=== PATIENT | female | born 1970 | race Caucasian/White ===

== ENCOUNTER 2017-12-21 08:56 | Emergency (ER) | payer BC ==
[2017-12-21 09:00] VITALS: BMI 26.0
[2017-12-21 09:03] VITALS: RESP 16; O2SAT 100
--- NOTE | 2017-12-21 10:28 | C.PDOC ---
History Of Present Illness 47 y/o female presents to ED sent by surgeon Dr. Gore for scheduled OR and further evaluation of urinary obstruction. Patient states she does not wish to be admitted. Patient admits to abdomen discomfort and Wyman causing discomfort denies nausea, vomiting, diarrhea, vaginal bleeding, vaginal discharge or any other complaints at this time. Time Seen by Provider: 12/21/17 09:05 Chief Complaint (Nursing): Female Genitourinary History Per: Patient History/Exam Limitations: no limitations Onset/Duration Of Symptoms: Days Current Symptoms Are (Timing): Still Present Past Medical History Reviewed: Historical Data, Nursing Documentation, Vital Signs Vital Signs: Last Vital Signs Temp 98.3 F 12/21/17 09:00 Pulse 83 12/21/17 09:00 Resp 16 12/21/17 09:00 BP 144/91 H 12/21/17 09:00 Pulse Ox 100 12/21/17 12:58 - Medical History PMH: Cardia Arrhythmia (PVC'S PER PATIENT), Migraine Surgical History: No Surg Hx Family History: States: No Known Family Hx - Social History Hx Alcohol Use: No Hx Substance Use: No - Immunization History Hx Tetanus Toxoid Vaccination: No Hx Influenza Vaccination: No Hx Pneumococcal Vaccination: No Review Of Systems Except As Marked, All Systems Reviewed And Found Negative. Gastrointestinal: Positive for: Abdominal Pain Physical Exam - Physical Exam Appears: Non-toxic, No Acute Distress Skin: Warm, Dry, No Rash Head: Atraumatic, Normacephalic Eye(s): bilateral: Normal Inspection Oral Mucosa: Moist Neck: Normal ROM, Supple Cardiovascular: Rhythm Regular Respiratory: Normal Breath Sounds, No Rales, No Rhonchi, No Wheezing Gastrointestinal/Abdominal: Soft, No Tenderness, No Guarding, No Rebound, Other (Wyman catheter in place) Back: No CVA Tenderness, No Vertebral Tenderness Neurological/Psych: Oriented x3, Normal Speech, Normal Cognition ED Course And Treatment - Laboratory Results Result Diagrams: 12/21/17 12:16 12/21/17 12:16 O2 Sat by Pulse Oximetry: 100 (RA) Pulse Ox Interpretation: Normal Medical Decision Making Medical Decision Making: Assessment: urinary obstruction Progress: Dr. Gore saw pt at ED, blood work was done and Wyman was changed Patient discharged with urinary retention and Fibroid with f.u to Dr. Gore Disposition Discussed With : Jodie Gore Doctor Will See Patient In The: ED Counseled Patient/Family Regarding: Studies Performed, Diagnosis, Need For Followup - Disposition Disposition: HOME/ ROUTINE Disposition Time: 12:56 Condition: STABLE Additional Instructions: follow up with Dr. Gore in 2 days call to make an appointment return to ER if symptoms worsens or progress Instructions: Uterine Fibroids, Urinary Retention (DC) Forms: [facility] (Welsh), General Discharge Instructions - Clinical Impression Clinical Impression: Fibroid uterus, Urinary retention - Scribe Statement The provider has reviewed the documentation as recorded by the Ismaibrai Alberto All medical record entries made by the Isamibrai were at my direction and personally dictated by me. I have reviewed the chart and agree that the record accurately reflects my personal performance of the history, physical exam, medical decision making, and the department course for this patient. I have also personally directed, reviewed, and agree with the discharge instructions and disposition.
--- NOTE | 2017-12-21 12:12 | MRI ---
PROCEDURE: MRI pelvis HISTORY: abd. pain COMPARISON: Not available TECHNIQUE: Multiplanar, multi sequence imaging of the pelvis was performed without intravenous gadolinium administration. FINDINGS: The uterus is grossly enlarged due to the presence of numerous fibroids of varying size. The largest fibroid measures approximately 5.5 x 6.7 x 7.3 cm. The endometrium is distorted and effaced by these numerous fibroids. The overall size of the uterus is approximately 8.8 x 10.3 x 12.8 cm. The endometrium is grossly normal in width. There is no endometrial fluid. The cervix is unremarkable in appearance. The vagina is grossly normal in appearance. Both ovaries are identified and are unremarkable with several small follicles. There is no pelvic lymphadenopathy. The urinary bladder is decompressed around a Wyman catheter balloon. There is marked atrophy of the right psoas muscle. There is marked atrophy of the left rectus abdominus muscle. The significance of this is uncertain. Several sacral Tarlov cysts are identified. This is an incidental finding. This results in some remodeling of the posterior aspect of the S2 vertebral body. The marrow signal of the visualized osseous structures is within normal limits. IMPRESSION: Enlarged multi fibroid uterus. Wyman catheter within a decompressed urinary bladder. No adnexal masses. Incidentally noted sacral Tarlov cysts. Incidental discovery of a trophic left rectus abdominus muscle and right psoas muscle.
[2017-12-21 12:21] LABS: BASO % 0.4 % (0.0-2.0); EOS # 0.2 K/uL (0.0-0.7); EOS % 2.9 % (0.0-4.0); HEMOGLOBIN 8.1 g/dL (11.0-16.0); LYMPH # 1.3 K/uL (1.0-4.3); LYMPH % 23.4 % (20.0-40.0); MEAN CELL VOLUME 65.2 fL (81.0-99.0); MEAN CORPUSCULAR HEMOGLOBIN 19.8 pg (27.0-31.0); MEAN CORPUSCULAR HGB CONC 30.3 g/dL (33.0-37.0); MEAN PLATELET VOLUME 7.3 fL (7.2-11.7); MONO # 0.3 K/uL (0.0-0.8); MONO % 4.7 % (0.0-10.0); NEUT % 68.6 % (50.0-75.0); RBC 4.1 Mil/uL (3.80-5.20); RED CELL DISTRIBUTION WIDTH 18.5 % (11.5-14.5); WHITE BLOOD COUNT 5.8 K/uL (4.8-10.8)
[2017-12-21 12:33] LABS: ALB/GLOB RATIO 1.3 (1.0-2.1); ALBUMIN 4.2 g/dL (3.5-5.0); ALT/SGPT 20 U/L (9-52); AST/SGOT 19 U/L (14-36); BLOOD UREA NITROGEN 5 mg/dL (7-17); CALCIUM 8.6 mg/dl (8.6-10.4); GFR AFRICAN-AMERICAN > 60; GFR NON-AFRICAN AMERICAN > 60
[2017-12-21 12:37] LABS: PROTHROMBIN TIME 11.4 SECONDS (9.7-12.2)
[2017-12-21 13:07] VITALS: BP 138/80; PULSE 80; TEMP 98.4
--- NOTE | 2017-12-21 15:15 | C.PDOC ---
History Of Present Illness pt presented to the ER with bladder and pelvic pain and innability ot urinate. Pt was diagnosed with massive fibroid uterus, associated urinary retention and worsening pain. Time Seen by Provider: 12/21/17 09:05 Chief Complaint (Nursing): Female Genitourinary History Per: Patient History/Exam Limitations: no limitations Onset/Duration Of Symptoms: Days Current Symptoms Are (Timing): Worse Severity: Severe Pain Scale Rating Of: 7 Quality Of Discomfort: Pressure, "Pain" Associated Symptoms: Urinary Symptoms Alleviating Factors: None Recent travel outside of the [place]: No Additional History Per: Patient Abnormal Vaginal Bleeding: Yes : 0 Para: 0 Miscarriage: 0 Past Medical History Vital Signs: Last Vital Signs Temp 98.4 F 12/21/17 13:07 Pulse 80 12/21/17 13:07 Resp 16 12/21/17 13:07 BP 138/80 12/21/17 13:07 Pulse Ox 100 12/21/17 15:26 - Medical History PMH: Cardia Arrhythmia (PVC'S PER PATIENT), Migraine, Chronic Pain Other PMH: massive fibroid uterus approx 24weeks size with abstructive effect bladder Surgical History: No Surg Hx Family History: States: No Known Family Hx - Social History Hx Tobacco Use: No Hx Alcohol Use: No Hx Substance Use: No - Immunization History Hx Tetanus Toxoid Vaccination: No Hx Influenza Vaccination: No Hx Pneumococcal Vaccination: No Review Of Systems Except As Marked, All Systems Reviewed And Found Negative. Constitutional: Positive for: Weakness, Malaise Genitourinary: Positive for: Frequency, Incontinence, Pelvic Pain, Other ( urinary retention inability to urinate) Physical Exam - Physical Exam Skin: Normal Color Head: Atraumatic, Normacephalic Eye(s): bilateral: Normal Inspection, PERRL Ear(s): Bilateral: Normal Nose: Normal Oral Mucosa: Moist Tongue: Normal Appearing Lips: Normal Appearing Teeth: Normal Dentition Gingiva: Normal Appearing Throat: Normal Neck: Normal Lymphatic: Normal Exam Chest: Symmetrical Respiratory: Normal Breath Sounds Gastrointestinal/Abdominal: Normal Exam Rectal: Deferred Pelvic: Adnexal Tenderness, Mass, Enlarged Uterus, Tender Uterus Extremity: Normal ROM Extremity: Bilateral: Atraumatic DTR: Bicep (R): 4+ Neurological/Psych: Oriented x3 Gait: Steady ED Course And Treatment - Laboratory Results Result Diagrams: 12/21/17 12:16 12/21/17 12:16 Lab Interpretation: Abnormal (anemia due to abnormal bleeding due to fibroids) Urine POC: Negative O2 Sat by Pulse Oximetry: 100 Pulse Ox Interpretation: Normal Disposition Doctor Will See Patient In The: Office Counseled Patient/Family Regarding: Studies Performed, Diagnosis, Need For Followup, Rx Given - Disposition Disposition: HOME/ ROUTINE Disposition Time: 15:00 Condition: GOOD Additional Instructions: follow up with Dr. Gore in 2 days call to make an appointment return to ER if symptoms worsens or progress Instructions: Uterine Fibroids, Urinary Retention (DC) Forms: General Discharge Instructions, [facility] (Rwandan) - Clinical Impression Clinical Impression: Fibroid uterus, Urinary retention - PA / ASSURANCE SENIOR / Resident Statement / has reviewed & agrees with the documentation as recorded. (pt was seen by me, evaluated and had a detailed discsussion about the treatment plan, continue with indweling catheter for urinary retention pt completed an MRI of the pelvis today, initial discussion about hysterectomy and possible myomecotmy.) / has examined the patient and agrees with the treatment plan. (to to follow up with dr gore in office in 2 dqays to solidify a plan to address the urinary retention abnotmla uterine bleeeding and pain.)
== END 2017-12-21 13:08 | disposition home or self-care (01) ==
LOC: C.ER 08:56
DX: D25.9 Leiomyoma of uterus, unspecified (principal); R33.9 Retention of urine, unspecified

== ENCOUNTER 2017-12-26 05:53 | Inpatient (IN) | payer BC ==
[2017-12-26 07:00] LABS: BASO % 0.6 % (0.0-2.0); EOS # 0.2 K/uL (0.0-0.7); EOS % 3.2 % (0.0-4.0); LYMPH # 2.1 K/uL (1.0-4.3); MEAN CELL VOLUME 64.5 fL (81.0-99.0); MEAN PLATELET VOLUME 7.4 fL (7.2-11.7); MONO # 0.4 K/uL (0.0-0.8); MONO % 5.6 % (0.0-10.0); NEUT % 59.6 % (50.0-75.0); NRBC % 0.1 % (0.0-2.0); RED CELL DISTRIBUTION WIDTH 18.7 % (11.5-14.5); WHITE BLOOD COUNT 6.7 K/uL (4.8-10.8)
[2017-12-26] MEDS ORDERED: Sodium Chloride 0.9% 20 ML IV ONE (07:30)
[2017-12-26] MEDS ORDERED: ceFAZolin IV 2 gm in Dextrose 2 GM/50 ML BAG IVPB ONE (07:31)
[2017-12-26] MEDS ORDERED: Bupivacaine/Epi 0.25%-1:200,000 10 ml PF inj IJ ONE (07:34)
[2017-12-26] MEDS ORDERED: Bupivacaine-Epi 0.5%-1:200,000 PF Inj IJ ONE (07:35)
[2017-12-26] MEDS ORDERED: Midazolam 2 MG/2 ML VIAL ONE (07:49)
[2017-12-26] MEDS ORDERED: Propofol 10 mg/ml Inj (20 ML) ONE (07:50)
[2017-12-26] MEDS ORDERED: Bupivacaine 0.5%/Epi 1:200,000 (10 ML SOL) IJ ONE (08:00)
[2017-12-26] MEDS ORDERED: ePHEDrine 50 mg/ml Inj ONE (08:22)
[2017-12-26] MEDS ORDERED: Rocuronium 10 mg/ml (5 ml) ONE (08:22)
[2017-12-26] MEDS ORDERED: Vasopressin 20 Units/ml Inj ONE (09:04)
[2017-12-26] MEDS ORDERED: Neostigmine Methylsulfate 3mg/3ml Syringe IV ONE (09:42)
[2017-12-26] MEDS ORDERED: Bupivacaine HCl 0.5% PF (30 ml) Inj ONE (10:45)
[2017-12-26] MEDS ORDERED: BUPIVACAINE 0.125%/0.9% NACL 600 ML IJ ONE (11:30)
--- NOTE | 2017-12-26 11:32 | PCM.OP ---
Operative Report - Operative Report Date of Surgery/Procedure: 12/26/17 (q) Time of Surgery/Procedure: 11:29 Surgeon: Jodie Gore MD Food Production Worker: Nat TORREZ Anesthesia/Sedation: Gen with Et tube Pre-Operative Diagnosis: Symptomatic fibroid uterus. Prolapse uterus. Urinary retention. Urinary incontinence. Abnormal uterine bleeding. Chronic pelvic pain Post-Operative Diagnosis: Symptomatic fibroid uterus. Prolapse uterus. Urinary retention. Urinary incontinence. Abnormal uterine bleeding. Chronic pelvic pain. left ovarian cyst Indication for Surgery: worsening symptomatic fibroid uterus. urinary retention due to compression from massive size fibroid uterus approx 20 weeks size Operative Findings: massive fibroid uterus approx 20 weeks size, bladder compressed due to massive size uterus with predominate anterior wall myomas. normal appearing tubes and ovaries. epical prolapse. Procedure/Operation Description: Robotic robotic hysterectomy bilateral salpingectomy >250g. Uterosacroligament suspenssion. Exploration of ureters. Left ovarian cystectomy. Diagnostic cystoscopy. DESCRIPTION OF OPERATION: This is a 47 years old female with symptomatic massive fibroid uterus approximately 20 weeks in size, associated abnormal uterine bleeding, chronic anemia, urinary incontinence and pelvic pressure. The patient completed an extensive preoperative workup, which included an ultrasound, as well as a Pap smear, chemistry and hematology studies. The patient reported these symptoms and problems as debilitating, and adversely affecting her quality of life. Following a period of failed conservative management, and patient decision was made to proceed with a more invasive approach to address the above noted problems. A decision was finally made to proceed with a total robotic assisted hysterectomy, bilateral salpingectomy, and vaginal vault suspension. A detailed description of this robotic procedure was given to the patient, all indications, risks, benefits and alternative treatments were reviewed, and printed material was also given to the patient regarding robotic surgery. The patient elected to proceed with the proposed procedure fully understanding all the risks and benefits associated with this proposed robotic procedure. After proper consent was obtained from the patient was taken to the operating room, proper patient identification was completed. She was placed in dorsal lithotomy position; general anesthesia was induced without difficulty. Her legs were placed in adjustable Viraj stirrups. Careful attention was placed to avoid hyper-flexion or hyper-rotation of the lower extremities at the hip and the knee joints. She was prepped and draped appropriately for robotic assisted hysterectomy and colposuspension. Wyman catheter was inserted under sterile conditions. A weighted speculum was placed in the vagina, anterior lip of cervix was grasped with a tenaculum, the cervix was mildly dilated and a V-care uterine manipulator was inserted through the cervix and secured. The weighted speculum and tenaculum were removed from the patient's vagina and attention was turned to the patient's abdomen. Local anesthetic solutions of 0.25% Marcaine with epinephrine were utilized to infiltrate the skin prior to all abdominal skin incisions. A total of 15 mL of 0.25% Marcaine was utilized throughout the procedure. While tenting the abdominal wall up, a Veress needle was inserted at a 45 degree angle. With CO2 insufflation, there was a drop in intraperitoneal pressure confirming correct placement. Insufflation was carried out to approximately 3 liters. A blunt robotic trocar and sleeve was introduced through the camera port in the midline, approximately 7 cm above the umbilicus. Then, using a 30-degree lens robotic scope, initial survey of the patient's abdomen revealed a massively enlarged fibroid uterus approximately 20 weeks in size bulky, expending side to side laterally and extending close to them vulvitis. Extensive intra-abdominal and intrapelvic adhesions in close proximity of both ureters RIGHT and LEFT side. Under direct visualization, 3 additional robotic ports were utilized for this procedure. The first one, approximately 5 cm superior to the superior iliac crest on the RIGHT, a second port was approximately 5 cm superior to the superior iliac crest on the LEFT, and a third one was approximately 8 cm RIGHT lateral of the camera port in the midline. All robotic ports were approximately 8 mm in length. An planning assistant port was inserted approximately 8 cm LEFT lateral of the camera port, and the versastep trocar and sleeve were introduced in the recommended fashion. A Veress and sheath were first introduced through a 1 cm incision, the Veress was removed and a trocar was introduced through the sheath and secured. Again, excellent visualization was noted confirming intraperitoneal placement. The placement of the trocars was all accomplished under careful and meticulous placement under direct visualization. Following the placement of all trocars, the da Becca robotic system was docked in a parallel side docking method without difficulty after the patient was placed in moderate Trendelenburg position and small bowel had been swept away out of the pelvis. Blunt and sharp dissection was utilized to carefully and meticulously lyse multiple bowel and peritoneal adhesions in an attempt to reach the adnexa bilaterally and reached the uterine vessels. Multiple loops of bowel were adherent to the anterior abdominal wall as well as pelvic sidewall. Exploration of ureters was essentially noted to complete this procedure and avoid ureter compromise. The retroperitoneum was explored the ureters were traced from the pelvic brim down to the cervical uterine junction. At this time completion of enterolysis as well as lysis of adhesion allowed the completion of the hysterectomy. Prior to the start of the hysterectomy, both ureters were visualized along the full course, peristalsis bilaterally. On the patient's right side, the utero- ovarian and the round ligaments were identified cauterized and transected, the broad ligament was divided all the way down to the utero cervical junction bladder flap was then created by transecting the visceroperitoneum over the bladder reflection. In a similar fashion, the left round ligament, utero- ovarian ligament and broad ligament were cauterized sealed and transected, taken down to the level of the cervical uterine junction. Uterine vessels on both sides were sealed and transected. The Uterosacral ligaments were sealed and transected. The monopolar yanique and PK were utilized to complete the colpotomy incision around the care vaginal ring. Excellent hemostasis was noted. Due to the massive size of this fibroid uterus, decision was made to decompress the uterus and complete a myomectomy in order to deliver and extract all the myoma as vaginally and avoid large abdominal incisions. An MRI study which was done prior to this procedure indicated benign disease. Following the completion of the hysterectomy and prior to the extraction of the specimen. The vagina, multiple myomas were enucleated and delivered vaginally intact. At this time as the uterus was decompressed, the uterus was able to deliver via the colpotomy incision and sent to pathology for analysis. Both uterus cervix and fallopian tubes were delivered without difficulty. Attention was then turned to the LEFT ovary where a complex cyst was noted. Sharp and blunt dissection utilized to enucleated the cystic mass with excellent hemostasis. The cyst was delivered through the colpotomy incision and sent to pathology. The colpotomy incision was closed with 2-0 v LOC in a continuous fashion with excellent hemostasis. The vaginal vault suspension was achieved by suspending the vaginal cuff to the base of the uterosacral ligaments bilaterally. For uterosacral ligament suspension portion of the procedure, the ureters were once again identified to avoid possible compromise or kinking while suspending the vaginal vault. A 2-0 permanent suture material (Madill-Que) was utilized to suspend the uterosacral ligaments from the base to the vaginal vault cuff incision including both anterior and posterior aspect of the colpotomy incision. Utilizing a 3-0 Monocryl suture, the peritoneum over the colpotomy incision and uterosacral ligaments was re-approximated in a continuous fashion. The pelvis and abdomen were irrigated copiously and cleared of all clots and debris. FloSeal as well as Interceed was applied over the incision sites. Excellent hemostasis was once again noted. All robotic and laparoscopic instruments removed under direct visualization. The robotic arms were undocked , and a da Peela robotic system was wheeled away from the patient's bedside. Both planning assistant and camera ports were closed at the fascial layer utilizing a 0 Vicryl suture material in interrupted fashion. Pneumoperitoneum was reduced and all skin incisions were closed utilizing 4-0 Monocryl in a subcutaneous fashion. Dermabond was applied to all incisions. At the conclusion of this procedure, a diagnostic cystoscopy was completed. The Wyman catheter was removed; the bladder was distended with approximately 350 cc of normal saline. A 17 Indian 30 cystoscope was introduced through the urethra and a survey of the bladder anatomy was completed. The trigone, and the dome of the bladder appeared normal, both ureteral orifices appeared normal and were efluxing urine freely. The urethra appeared normal. A Wyman catheter was reinserted. Vaginal packing was inserted to be removed the next morning. Patient emerged from general anesthesia without difficulty, and was taken to recovery room in stable condition. Prior to incision the patient received antibiotics, prior to closure sponge lap and needle counts were correct x2. This was exceptionally difficult surgical procedure due to the distorted pelvic anatomy as well as the massive size of the uterus due to the multiple fibroids given this small introitus size as well as narrow pelvic cavity. This procedure required expertise and took a longer time duration to complete safely. Estimated Blood Loss: 10 Blood Replaced: none Sponge/Instrument Count: count correct times 2 Drains: none Complications: None Specimen: uterus, cervix tubes and myomas Discharge & Condition: as per criteria
[2017-12-26] MEDS: HYDROmorphone 0.5 mg/0.5 ml ISec IVP PRN ×3 (11:35→12:23)
[2017-12-26] MEDS ORDERED: Morphine 4 MG/ML VIAL IVP PRN (11:35)
[2017-12-26] MEDS ORDERED: ceFAZolin IV 2 gm in Dextrose 2 GM/50 ML BAG IVPB SCH (12:00)
[2017-12-26] MEDS: Sodium Chloride 0.9% 1,000 ML IV SCH (14:00)
[2017-12-26] MEDS: ceFAZolin IV 2 gm in Dextrose 2 GM/50 ML BAG IVPB SCH (15:48)
[2017-12-26] MEDS: Oxycodone/Acetaminophen 5/325 mg Tab PO PRN ×2 (17:39→22:29)
[2017-12-27] MEDS: Sodium Chloride 0.9% 1,000 ML IV SCH (00:13)
[2017-12-27] MEDS: ceFAZolin IV 2 gm in Dextrose 2 GM/50 ML BAG IVPB SCH ×2 (00:14→08:02)
[2017-12-27] MEDS: Oxycodone/Acetaminophen 5/325 mg Tab PO PRN ×2 (06:48→11:58)
[2017-12-27 07:09] VITALS: O2SAT 97
[2017-12-27 07:41] LABS: BASO % 0.4 % (0.0-2.0); EOS % 0.3 % (0.0-4.0); HEMOGLOBIN 7.2 g/dL (11.0-16.0); LYMPH # 2.2 K/uL (1.0-4.3); LYMPH % 22.9 % (20.0-40.0); MEAN CELL VOLUME 65.2 fL (81.0-99.0); MEAN CORPUSCULAR HEMOGLOBIN 19.9 pg (27.0-31.0); MEAN CORPUSCULAR HGB CONC 30.5 g/dL (33.0-37.0); MEAN PLATELET VOLUME 7.7 fL (7.2-11.7); MONO # 0.5 K/uL (0.0-0.8); MONO % 4.7 % (0.0-10.0); NEUT # 6.9 K/uL (1.8-7.0); NEUT % 71.7 % (50.0-75.0); RBC 3.62 Mil/uL (3.80-5.20); RED CELL DISTRIBUTION WIDTH 18.6 % (11.5-14.5); WHITE BLOOD COUNT 9.6 K/uL (4.8-10.8)
[2017-12-27 08:12] LABS: ALB/GLOB RATIO 1.2 (1.0-2.1); ALBUMIN 3.4 g/dL (3.5-5.0); ALT/SGPT < 6 U/L (9-52); AST/SGOT 16 U/L (14-36); BLOOD UREA NITROGEN 4 mg/dL (7-17); CALCIUM 7.9 mg/dl (8.6-10.4); GFR AFRICAN-AMERICAN > 60; GFR NON-AFRICAN AMERICAN > 60
[2017-12-27 09:08] VITALS: BP 116/78; PULSE 80; RESP 18; TEMP 98.4
--- NOTE | 2017-12-27 12:09 | CP.PCM.PN ---
Subjective - Date & Time of Evaluation Date of Evaluation: 12/27/17 Time of Evaluation: 12:07 - Subjective Subjective: Patient says she has a lot of pain especially on left side, controlled wiht pain medication. SHe had urinary retention preop, and has voided a little after irizarry was removed this am. Denies any urgency or fullness at this time. Willam PO, denies n/v Objective - Vital Signs/Intake and Output Vital Signs (last 24 hours): Temp Pulse Resp BP Pulse Ox 98.4 F 80 18 116/78 97 12/27/17 08:00 12/27/17 08:00 12/27/17 08:00 12/27/17 08:00 12/27/17 08:00 Intake and Output: 12/27/17 12/27/17 06:59 18:59 Output Total 1000 Balance -1000 - Medications Medications: Current Medications BUPIVACAINE 0.125%/0.9% NACL (Bupivacaine-Ns 0.125% On-Q [employer] Intern) 600 mls @ 4 mls/ hr IJ ONCE ONE Stop: 01/01/18 17:29 Sodium Chloride (Sodium Chloride 0.9%) 1,000 mls @ 100 mls/hr IV .Q10H [place] Last Admin: 12/27/17 00:13 Dose: 100 mls/hr Morphine Sulfate (Morphine) 4 mg IVP Q4H PRN PRN Reason: Pain, severe (8-10) Ondansetron HCl (Zofran Inj) 4 mg IVP ONCE PRN PRN Reason: Nausea/Vomiting Oxycodone/Acetaminophen (Percocet 5/325 Mg Tab) 2 tab PO Q4 PRN PRN Reason: Pain, moderate (4-7) Stop: 12/29/17 11:36 Last Admin: 12/27/17 11:58 Dose: 2 tab - Labs Labs: 12/27/17 07:28 12/27/17 07:28 - GI/Abdominal Exam Additional comments: abd soft, on Q removed, no bleeding incisions intact, no erythema to dermabond, dry abd mild distention, soft Assessment and Plan (1) Fibroid uterus Assessment & Plan: POD#1 s/p hysterectomy d/c home encourage ambulation OOB rx percocet per [place] colace 100mg PO BID while taking narcotics f/u 2 weeks call for increased vaginal bleeding, fever, chills, increased pain f/u PMD for anemia workup, hemodynamically stable, patients baseline hgb is 8 recommend iron supplements starting tomorrow call Dr. Gore for any return of of urinary retention d/w Dr. Gore, agrees with above Status: Acute (2) Urinary retention Status: Acute (3) Prolapsed uterus Status: Acute (4) Abnormal uterine bleeding Status: Acute (5) Chronic pelvic pain in female Status: Acute (6) Ovarian cyst, left Status: Acute
--- NOTE | 2017-12-27 15:22 | CP.PCM.PN ---
Subjective - Date & Time of Evaluation Date of Evaluation: 12/27/17 Time of Evaluation: 03:00 - Subjective Subjective: Pt for discharge today, Dr. Jones requested that I dispense rx for percocet. Rx given for #14. Pt advised that Percocet can be addictive and to use sparingly. Pt also advised of anemia and to take Fe w/ Vit C or oj. Pt advissed that Fe and Percocet can cause severe constipation and Senokot S may help. Objective - Vital Signs/Intake and Output Vital Signs (last 24 hours): Temp Pulse Resp BP Pulse Ox 98.4 F 80 18 116/78 97 12/27/17 08:00 12/27/17 08:00 12/27/17 08:00 12/27/17 08:00 12/27/17 08:00 Intake and Output: 12/27/17 12/27/17 06:59 18:59 Output Total 1000 Balance -1000 - Medications Medications: Current Medications BUPIVACAINE 0.125%/0.9% NACL (Bupivacaine-Ns 0.125% On-Q Plating Stripper) 600 mls @ 4 mls/ hr IJ ONCE ONE Stop: 01/01/18 17:29 Sodium Chloride (Sodium Chloride 0.9%) 1,000 mls @ 100 mls/hr IV .Q10H [place] Last Admin: 12/27/17 00:13 Dose: 100 mls/hr Morphine Sulfate (Morphine) 4 mg IVP Q4H PRN PRN Reason: Pain, severe (8-10) Ondansetron HCl (Zofran Inj) 4 mg IVP ONCE PRN PRN Reason: Nausea/Vomiting Oxycodone/Acetaminophen (Percocet 5/325 Mg Tab) 2 tab PO Q4 PRN PRN Reason: Pain, moderate (4-7) Stop: 12/29/17 11:36 Last Admin: 12/27/17 11:58 Dose: 2 tab - Labs Labs: 12/27/17 07:28 12/27/17 07:28
== END 2017-12-27 15:45 | disposition home or self-care (01) | DRG 743 ==
LOC: C.SDS 05:53 → C.4M 11:36
PROVIDERS: ADMIT Obstetrics & Gynecology; ATTEND Obstetrics & Gynecology
PROC: 0UT74ZZ Resection of Bilateral Fallopian Tubes, Percutaneous Endoscopic Approach (ICD-10-PCS; 2017-12-26)
PROC: 0UB14ZZ Excision of Left Ovary, Percutaneous Endoscopic Approach (ICD-10-PCS; 2017-12-26)
PROC: 0US94ZZ Reposition Uterus, Percutaneous Endoscopic Approach (ICD-10-PCS; 2017-12-26)
PROC: 8E0W4CZ Robotic Assisted Procedure of Trunk Region, Percutaneous Endoscopic Approach (ICD-10-PCS; 2017-12-26)
PROC: 0TJB8ZZ Inspection of Bladder, Via Natural or Artificial Opening Endoscopic (ICD-10-PCS; 2017-12-26)
PROC: 0UT94ZZ Resection of Uterus, Percutaneous Endoscopic Approach (ICD-10-PCS; principal; 2017-12-26 07:45)
DX: D25.1 Intramural leiomyoma of uterus (principal); R33.8 Other retention of urine; N83.02 Follicular cyst of left ovary; D53.9 Nutritional anemia, unspecified; R32 Unspecified urinary incontinence; N81.4 Uterovaginal prolapse, unspecified